=== PATIENT | female | born 1945 | race Caucasian/White ===

== ENCOUNTER 2017-03-12 21:46 | Emergency (ER) | payer MEDICARE | END 2017-03-13 | disposition home or self-care (01) | LOC: ER1 21:46 | DX: R04.0 Epistaxis (principal); I10 Essential (primary) hypertension; Z91.041 Radiographic dye allergy status; Z88.0 Allergy status to penicillin; Z88.5 Allergy status to narcotic agent; Z79.82 Long term (current) use of aspirin; Z79.899 Other long term (current) drug therapy | CPT/HCPCS: 99283 ==

== ENCOUNTER → 2021-04-02 | Outpatient (CLI) | payer MEDICARE, OTHER | LOC: CT 13:00 | DX: C67.9 Malignant neoplasm of bladder, unspecified (principal) | CPT/HCPCS: Q9965; Q9967 ==